=== PATIENT | male | born 1965 | race Two or more races ===

== ENCOUNTER 2018-11-05 15:47 | Inpatient (IN) | payer OTHER ==
[~2018-11-05] VITALS: Ht 185.4 cm; Wt 95.3 kg
--- NOTE | 2018-11-05 16:00 | NUR ---
patient BIBPA from snf, c/o generalized weakness, on room air, breathing evenly and unlabored. Connected to the monitor and pulse ox. kept comfortable. will continue to monitor accordingly.
[2018-11-05] MEDS ORDERED: POTA-88 PO (16:09)
[2018-11-05] MEDS ORDERED: ACET325C5 PO (16:09)
[2018-11-05] MEDS ORDERED: BISA10SU61 RC (16:09)
[2018-11-05] MEDS ORDERED: APIX5TAB4 PO (16:09)
[2018-11-05] MEDS ORDERED: MAGN400O6 PO (16:09)
[2018-11-05] MEDS ORDERED: HYDR-4384 PO (16:09)
[2018-11-05 16:22] LABS: BASOPHILS # (AUTO) 0.1 /CMM (0.0-0.2); BASOPHILS % (AUTO) 0.7 % (0.0-2.0); EOSINOPHILS % (AUTO) 1.7 % (0.0-6.0); HEMATOCRIT 49 % (39-51); HEMOGLOBIN 15.7 g/dL (13.5-17.5); LYMPHOCYTES # (AUTO) 2.1 /CMM (0.8-4.8); LYMPHOCYTES % (AUTO) 29.4 % (20.0-44.0); MEAN CORPUSCULAR HGB CONC 32 g/dl (31.0-36.0); MEAN CORPUSCULAR VOLUME 96 fL (80-96); MONOCYTES # (AUTO) 0.6 /CMM (0.1-1.30); NEUTROPHILS # (AUTO) 4.3 /CMM (1.8-8.9); NEUTROPHILS % (AUTO) 60.2 % (43.0-81.0); PLATELET COUNT (AUTO) 242 /CMM (150-450); RED BLOOD CELL COUNT(AUTO) 5.12 MIL/uL (4.5-6.0); WHITE BLOOD COUNT (AUTO) 7.1 K/uL (4.3-11.0)
[2018-11-05 16:32] LABS: CALCIUM, SERUM 8.9 mg/dL (8.5-10.1); CREATININE 1.1 mg/dL (0.6-1.3); POTASSIUM 4.4 mmol/L (3.5-5.1)
[2018-11-05 16:44] LABS: ALBUMIN 3.7 g/dL (3.4-5.0); BILIRUBIN,DIRECT 0.4 mg/dL (0.0-0.2); BILIRUBIN,TOTAL 1.8 mg/dL (0.2-1.0); TOTAL PROTEIN, SERUM 7.8 g/dL (6.4-8.2)
[2018-11-05] MEDS ORDERED: ASPIRIN 325 MG TABLET PO ONE (17:00)
[2018-11-05] MEDS ORDERED: SPIR25TA6 PO (17:10)
[2018-11-05] MEDS ORDERED: BUME2TAB7 PO (17:10)
[2018-11-05] MEDS ORDERED: MULT-134 PO (17:10)
[2018-11-05] MEDS ORDERED: LACT1CAP71 PO (17:10)
[2018-11-05] MEDS ORDERED: LISI-607 PO (17:10)
[2018-11-05] MEDS ORDERED: NA P133E RC (17:10)
[2018-11-05] MEDS ORDERED: COLC0.6C PO (17:10)
[2018-11-05] MEDS ORDERED: ASPI-605 PO (17:10)
[2018-11-05] MEDS ORDERED: ATOR80TA PO (17:10)
[2018-11-05] MEDS ORDERED: ALBU8.5H8 IH (17:10)
[2018-11-05] MEDS ORDERED: IVAB5TAB PO (17:10)
[2018-11-05] MEDS ORDERED: ALLO100T PO (17:10)
[2018-11-05] MEDS ORDERED: ASCO500T8 PO (17:10)
[2018-11-05] MEDS ORDERED: CHOL50004 PO (17:10)
[2018-11-05] MEDS ORDERED: ASPIRIN 325 MG TABLET ONE (17:12)
--- NOTE | 2018-11-05 18:08 | NUR ---
CALLED [facility]. BOILER FITTER WAS PAGED
[2018-11-05 19:00] VITALS: BP 106/70
--- NOTE | 2018-11-05 19:00 | NUR ---
DERRICK ENGINEER OPENING/ADMISSION NOTES RECEIVED PATIENT FROM ER TRANSFERRED TO BED SAFELY, AWAKE ALERT AND ORIENTED X 4, RESPIRATIONS EVEN AND UNLABORED WITH EQUAL RISE AND FALL , HOWEVER NOTED SLIGHT SOB ON EXERTION PLACE ON 2 L VIA NC FOR COMFORT AND PATIENT REQUEST , DENIES ANY PAIN OR DISCOMFORT AT THIS TIME, RADIOLOGIC TECHNOLOGY TEACHER PLACED [address], PER PATIENT STATES NORMAL IS BETWEEN 100 HIGHEST 115-120. USUALLY TACHYCARDIC, ORIENTED TO STAFF AND CALL LIGHT AND KEPT WITHIN REACH, IV SITE TO LEFT HAND #20G INTACT AND PATENT, NO REDNESS, NO INFILTRATION PRESENT, URINAL PROVIDED ASSISTED TO THE BATHROOM AMBULATORY STEADY WITH STANDBY ASSIST, PER PATIENT DOES NOT HAVE WOUNDS ONLY ON LEFT FOOT , PICTURE TAKEN,BELONGINGS LIST DONE, PATIENT REMAINS COMFORTABLE AT THIS TIME , WILL FOLLOW MD ORDERS AND CONTINUE TO ADDRESS NEEDS.
--- NOTE | 2018-11-05 19:05 | NUR ---
Transferred patient via gurney accompanied by RN and emt in no apparent distress noted. Paola RN at bedside to assume care.
[2018-11-05] MEDS ORDERED: HYDROCODONE/APAP 5/325MG 1 EACH TABLET PO PRN (19:30)
[2018-11-05] MEDS ORDERED: ACETAMINOPHEN 325 MG TABLET PO PRN (19:30)
[2018-11-05] MEDS ORDERED: MAGNESIUM HYDROXIDE 30 ML UDC PO PRN (19:30)
[2018-11-05] MEDS ORDERED: ONDANSETRON HCL/PF 4 MG/2 ML VIAL IVP PRN (19:30)
[2018-11-05] MEDS ORDERED: FUROSEMIDE 20 MG/2 ML VIAL IV ONE (19:30)
[2018-11-05] MEDS ORDERED: NA PHOS,M-B/NA PHOS,DI-BA 1 EA ENEMA RC PRN (19:30)
[2018-11-05] MEDS ORDERED: BISACODYL SUPP (10 MG) 10 MG/SUPP.RECT SUPP.RECT RC PRN (19:30)
[2018-11-05] MEDS ORDERED: Z GUARD REMEDY 2 OZ OINT TP PRN (19:30)
[2018-11-05 20:00] VITALS: BP 102/70
[2018-11-05] MEDS: MAG HYDROX/AL HYDROX/SIMETH 30 ML UDC PO PRN (20:06)
--- NOTE | 2018-11-05 20:06 | NUR ---
BURR BENCH HAND NOTES PATIENT C/O UPSET STOMACH REQUESTING FOR INDIGESTION MEDICATION, MYLANTA OFFERED PATIENT AGREED , PRN GIVEN ORDERED WILL CONTINUE TO MONITOR FOR EFFECTIVENESS
[2018-11-05] MEDS: APIXABAN 5 MG TABLET PO SCH (20:13)
[2018-11-05] MEDS: PANTOPRAZOLE 40 MG TABLET.DR PO SCH (20:14)
[2018-11-05] MEDS: POTASSIUM CHLORIDE 10 MEQ TABLET.SA PO SCH (20:14)
--- NOTE | 2018-11-05 21:29 | NUR ---
INITIAL FINDINGS OF ECHOCARDIOGRAM SHOWED EF 20%~ W/ ALL HEART CHAMBERS ENLARGED; MOD PUL HTN 50mmHg. ADVISED CHARGE AND ATTENDING RN OF PRELIMINARY RESULTS.
[2018-11-05] MEDS: ATORVASTATIN 40 MG TABLET PO SCH (21:34)
[2018-11-05] MEDS: BUMETANIDE (1 MG) 1 MG TABLET PO SCH (21:35)
--- NOTE | 2018-11-05 22:02 | NUR ---
ECONOMICS DEPARTMENT CHAIR NOTES MADE DR. CHANDRIKA VALENTIN OF ECHO RESULTS , NO FURTHER ORDER AT THIS TIME. PATIENT TO HAVE CARDIO CONSULT IN AM.
[2018-11-06] VITALS: BP 108/72
[2018-11-06] MEDS ORDERED: ALBUTEROL FS 2.5 MG/0.5 ML VIAL.NEB NEB PRN (01:30)
[2018-11-06 04:00] VITALS: BP 118/85
--- NOTE | 2018-11-06 06:34 | NUR ---
AUTOMOBILE RENTAL CLERK CLOSING NOTES PATIENT AWAKE ALERT AND ORIENTED X 4, RESPIRATIONS EVEN AND UNLABORED WITH EQUAL RISE AND FALL , NO SOB AT THIS TIME, PRN O2 2L VIA NC FOR COMFORT WHEN PATIENT REQUEST ON EXERTION , DENIES ANY PAIN OR DISCOMFORT AT THIS TIME, WINE AND SPIRITS CLERK SR 97, CALL LIGHT AND KEPT WITHIN REACH, IV SITE TO LEFT HAND #20G INTACT AND PATENT, NO REDNESS, NO INFILTRATION PRESENT, URINAL PROVIDED ASSISTED TO THE BATHROOM AMBULATORY STEADY WITH STANDBY ASSIST, DRY DRESSING REMAINS INTACT ON LEFT FOOT , PATIENT REMAINS COMFORTABLE AT THIS TIME , 2230 TR[address] REPORTED TO WITH N.N.O DURING SHIFT AND EKG RESULTS REPORTED NO FURTHER ORDERS AT THIS TIME, PATIENT PLAN OF CARE INCLUDES CARDIAC CONSULT THIS AM PER MD PLAN, ALL NEEDS ATTENDED AT THIS TIME, WILL CONTINUE TO MONITOR AND ENDORSE TO NEXT SHIFT.
[2018-11-06 07:21] LABS: BASOPHILS % (AUTO) 0.5 % (0.0-2.0); EOSINOPHILS % (AUTO) 2.9 % (0.0-6.0); HEMATOCRIT 44 % (39-51); LYMPHOCYTES # (AUTO) 2.2 /CMM (0.8-4.8); LYMPHOCYTES % (AUTO) 32.4 % (20.0-44.0); MEAN CORPUSCULAR HGB CONC 34 g/dl (31.0-36.0); MEAN CORPUSCULAR VOLUME 98 fL (80-96); MONOCYTES # (AUTO) 0.5 /CMM (0.1-1.30); MONOCYTES % (AUTO) 7.7 % (2.0-12.0); NEUTROPHILS # (AUTO) 3.9 /CMM (1.8-8.9); NEUTROPHILS % (AUTO) 56.5 % (43.0-81.0); PLATELET COUNT (AUTO) 235 /CMM (150-450); RED BLOOD CELL COUNT(AUTO) 4.52 MIL/uL (4.5-6.0); WHITE BLOOD COUNT (AUTO) 6.9 K/uL (4.3-11.0)
--- NOTE | 2018-11-06 07:30 | NUR ---
Tele/RN - Assessment Patient in bed awake, A/O X 4, denies chest pain at this time, no complaints overnight, states breathing better, stable on room air, no apparent distress seen, tele shows SR-ST. Saline lock on the left hand is patent, intact, flushing well. Labs reviewed noted with low magnesium 1.7, will notify Md. Fall precautions maintained. Patient updated on plan of care and in agreement. Will continue with current medical management.
[2018-11-06 07:32] LABS: CALCIUM, SERUM 8.9 mg/dL (8.5-10.1); CREATININE 1.1 mg/dL (0.6-1.3); POTASSIUM 3.5 mmol/L (3.5-5.1)
[2018-11-06 07:38] LABS: ALBUMIN 3.6 g/dL (3.4-5.0); BILIRUBIN,DIRECT 0.2 mg/dL (0.0-0.2); BILIRUBIN,TOTAL 2.4 mg/dL (0.2-1.0); MAGNESIUM 1.7 mg/dL (1.8-2.4); PHOSPHORUS 3.9 mg/dL (2.5-4.9); TOTAL PROTEIN, SERUM 7.7 g/dL (6.4-8.2)
[2018-11-06] MEDS: PANTOPRAZOLE 40 MG TABLET.DR PO SCH (07:45)
[2018-11-06 08:10] VITALS: BP 114/76
[2018-11-06] MEDS: POTASSIUM CHLORIDE 10 MEQ TABLET.SA PO SCH ×2 (08:28→16:32)
[2018-11-06] MEDS: MULTIVIT W/MINERALS 1 TAB TABLET PO SCH (08:28)
[2018-11-06] MEDS: ASCORBIC ACID 500 MG TABLET PO SCH (08:28)
[2018-11-06] MEDS: APIXABAN 5 MG TABLET PO SCH ×2 (08:28→16:32)
[2018-11-06] MEDS: LISINOPRIL (5MG) 5 MG TABLET PO SCH (08:29)
[2018-11-06] MEDS: COLCHICINE 0.6 MG TABLET PO SCH (08:29)
[2018-11-06] MEDS: ASPIRIN EC 81 MG TABLET.DR PO SCH (08:30)
[2018-11-06] MEDS: ACIDOPHILUS/BULGARICUS 1 EACH TAB.CHEW PO SCH (08:30)
--- NOTE | 2018-11-06 08:30 | NUR ---
Tele/RN - s/b Dr. Bush Seen and examined by Dr. Bush with new orders, noted and carried out.
[2018-11-06] MEDS: BUMETANIDE (1 MG) 1 MG TABLET PO SCH (08:34)
[2018-11-06] MEDS: CHOLECALCIFEROL 1,000 UNIT TABLET (VIT D3) PO SCH (08:35)
[2018-11-06] MEDS: SPIRONOLACTONE 25 MG TABLET PO SCH (08:35)
[2018-11-06] MEDS: ALLOPURINOL 100 MG TABLET PO SCH (08:35)
[2018-11-06] MEDS: MAG HYDROX/AL HYDROX/SIMETH 30 ML UDC PO PRN (08:36)
[2018-11-06] MEDS ORDERED: POTASSIUM CHLORIDE 20 MEQ TAB.PRT.SR PO SCH (09:00)
[2018-11-06] MEDS ORDERED: IVABRADINE HCL PO SCH (09:00)
[2018-11-06] MEDS: FUROSEMIDE 40 MG/4 ML VIAL IV SCH ×3 (09:13→16:32)
[2018-11-06 09:42] LABS: THYROID STIMULATING HORMONE 4.195 uIU/mL (0.358-3.74)
--- NOTE | 2018-11-06 10:30 | NUR ---
MS/RN - Hospitalist Jeanie Seen and examined by Alex Rodas NP with new orders.
[2018-11-06] MEDS: Magnesium 1GM/D5W 100ML PREMIX 100 ML IV SCH ×2 (11:36→12:37)
--- NOTE | 2018-11-06 12:30 | NUR ---
MS/RN - Notes US abdomen done, cardiac diet resumed.
--- NOTE | 2018-11-06 15:30 | NUR ---
MS/RN - ICD check ICD check done, normal function, see report in the chart.
[2018-11-06 16:00] VITALS: BP 105/74
--- NOTE | 2018-11-06 17:10 | NUR ---
MS/RN - End of shift summary Patient states feeling better, denies chest pain, stable on room air, Lasix 40 mg IVP x 3 doses given, diuresing well, magnesium replacement administered. No fall/injury this shift. Will endorse to night nurse accordingly.
--- NOTE | 2018-11-06 19:05 | NUR ---
MS RN NOTE RECEIVED PT IN STABLE CONDITION A&O X4, CURRENTLY IN BED WATCHING TV. NO SIGNS OF SOB OR DISTRESS. IV IN L HAND IN PLACE S/L. ALL CURRENT NEEDS ATTENDED TO. BED LOW, LOCKED, UPPER RAILS UP, AND CALL LIGHT WITHIN REACH. WILL CONT. TO MONITOR.
[2018-11-06 20:00] VITALS: BP 107/65
--- NOTE | 2018-11-06 20:30 | NUR ---
MS RN NOTE PT SEEN AND EXAMINED BY ROBB VOGEL.
[2018-11-06] MEDS: ATORVASTATIN 40 MG TABLET PO SCH (21:06)
[2018-11-07 00:23] VITALS: BP 112/75
--- NOTE | 2018-11-07 06:14 | NUR ---
MS RN NOTE PT IN STABLE CONDITION A&O X4, CURRENTLY IN BED WATCHING VIDEOS OF PHONE. NO SIGNS OF SOB OR DISTRESS. IV IN L HAND IN PLACE S/L. ALL CURRENT NEEDS ATTENDED TO. BED LOW, LOCKED, UPPER RAILS UP, AND CALL LIGHT WITHIN REACH. WILL CONT. TO MONITOR AND ENDORSE TO NEXT SHIFT FOR MINESH.
[2018-11-07 06:41] LABS: BASOPHILS % (AUTO) 0.6 % (0.0-2.0); HEMATOCRIT 49 % (39-51); HEMOGLOBIN 16.4 g/dL (13.5-17.5); LYMPHOCYTES # (AUTO) 2.6 /CMM (0.8-4.8); LYMPHOCYTES % (AUTO) 37.7 % (20.0-44.0); MEAN CORPUSCULAR HGB CONC 34 g/dl (31.0-36.0); MEAN CORPUSCULAR VOLUME 99 fL (80-96); MONOCYTES # (AUTO) 0.6 /CMM (0.1-1.30); MONOCYTES % (AUTO) 8.4 % (2.0-12.0); NEUTROPHILS # (AUTO) 3.4 /CMM (1.8-8.9); NEUTROPHILS % (AUTO) 49.3 % (43.0-81.0); PLATELET COUNT (AUTO) 222 /CMM (150-450); RED BLOOD CELL COUNT(AUTO) 4.96 MIL/uL (4.5-6.0); WHITE BLOOD COUNT (AUTO) 6.9 K/uL (4.3-11.0)
[2018-11-07 06:56] LABS: ALBUMIN 3.7 g/dL (3.4-5.0); BILIRUBIN,TOTAL 2.3 mg/dL (0.2-1.0); CALCIUM, SERUM 9.1 mg/dL (8.5-10.1); CREATININE 1.1 mg/dL (0.6-1.3); PHOSPHORUS 4.8 mg/dL (2.5-4.9); POTASSIUM 3.8 mmol/L (3.5-5.1); TOTAL PROTEIN, SERUM 7.9 g/dL (6.4-8.2)
[2018-11-07] MEDS: PANTOPRAZOLE 40 MG TABLET.DR PO SCH (07:19)
--- NOTE | 2018-11-07 07:20 | NUR ---
MS/RN - Assessment Patient in bed watching TV, A/O X 4, denies chest pain, no c/o shortness of breath, states breathing better, stable on room air. Saline lock on the left hand is patent, intact, flushing well. Labs reviewed, no critical results, magnesium level improved. Fall precautions maintained. Patient updated on plan of care and in agreement. Will continue with current medical management.
--- NOTE | 2018-11-07 07:40 | NUR ---
MS/RN - S/b Dr. Bush Seen and examined by Dr. Bush with no new orders at this time. Continue to diurese, cleared from cardiac standpoint for discharge.
[2018-11-07 08:00] VITALS: BP 104/72
[2018-11-07] MEDS: ASCORBIC ACID 500 MG TABLET PO SCH (08:10)
[2018-11-07] MEDS: BUMETANIDE (1 MG) 1 MG TABLET PO SCH (08:10)
[2018-11-07] MEDS: MULTIVIT W/MINERALS 1 TAB TABLET PO SCH (08:12)
[2018-11-07] MEDS: CHOLECALCIFEROL 1,000 UNIT TABLET (VIT D3) PO SCH (08:12)
[2018-11-07] MEDS: ALLOPURINOL 100 MG TABLET PO SCH (08:12)
[2018-11-07] MEDS: SPIRONOLACTONE 25 MG TABLET PO SCH (08:12)
[2018-11-07] MEDS: POTASSIUM CHLORIDE 10 MEQ TABLET.SA PO SCH (08:12)
[2018-11-07] MEDS: COLCHICINE 0.6 MG TABLET PO SCH (08:13)
[2018-11-07] MEDS: ASPIRIN EC 81 MG TABLET.DR PO SCH (08:13)
[2018-11-07] MEDS: ACIDOPHILUS/BULGARICUS 1 EACH TAB.CHEW PO SCH (08:13)
[2018-11-07] MEDS: APIXABAN 5 MG TABLET PO SCH (08:17)
[2018-11-07 08:56] VITALS: BP 104/72
[2018-11-07] MEDS: LISINOPRIL (5MG) 5 MG TABLET PO SCH (08:56)
--- NOTE | 2018-11-07 10:30 | NUR ---
MS/RN - Hospitalist Jeanie Seen and examined by Alex Rodas NP with order to discharge patient back to [facility] today.
--- NOTE | 2018-11-07 13:00 | NUR ---
MS/RN - Notes Patient denies chest pain, no apparent distress, no c/o SOB, remain afebrile. nurse manager arranged for non-emergency transportation, ETA 15:30. Patient was notified.
--- NOTE | 2018-11-07 14:00 | NUR ---
MS/RN - Notes Called report to JOHN Rivas at [facility] [phone]. Reviewed discharge instructions to have the patient follow up with PCP and roofing foreman, continue to diurese, ambulate, restrict fluid intake, strict I&O monitoring. RN verbalized full understanding and all questions answered to her satisfaction.
--- NOTE | 2018-11-07 16:00 | NUR ---
MS/RN - Discharge Note Patient alert and oriented throughout the shift, discharged home in stable condition, remain afebrile, no c/o shortness of breath, breathing improved, stable on room air, denies any pain. Reviewed discharge instructions with patient and he verbalized full understanding of all teachings including medications and follow-up care with PCP, [facility], continue home meds, restrict fluid intake, and ambulate. Patient advised to seek immediate medical attention for worsening symptoms, chest pain, shortness of breath, palpitations, abdominal pain/distention, intractable nausea and vomiting, diarrhea, hematochezia, melena, weakness, loss of consciousness, neurological deficit, or any other emergent concerns. All belongings with patient and he deny any missing items. Patient refused photos to be taken of left 4th toe wound, no s/s of infection. Saline lock removed on the left hand with catheter tip intact, no redness, no swelling noted at the site. Discharge paperwork signed and copies were given per protocol. Accompanied to the lobby via wheelchair and transported via non emergency transportation provided by his insurance. Addendum: 11/07/18 at 1627 by MATY BROWN RN Correction: Patient was discharged to [facility] and not home as documented above.
== END 2018-11-07 16:00 | DRG 194 ==
LOC: ER 16:01 → TELE 18:06 → MED 11-06 09:32
PROVIDERS: ADMIT Nurse Practitioner Acute Care; ATTEND Nurse Practitioner Acute Care
DX: I11.0 Hypertensive heart disease with heart failure (principal); I21.A1 Myocardial infarction type 2; I42.9 Cardiomyopathy, unspecified; K76.1 Chronic passive congestion of liver; Z79.01 Long term (current) use of anticoagulants; E11.9 Type 2 diabetes mellitus without complications; I50.23 Acute on chronic systolic (congestive) heart failure; E78.5 Hyperlipidemia, unspecified; M10.9 Gout, unspecified; K21.9 Gastro-esophageal reflux disease without esophagitis; Z79.82 Long term (current) use of aspirin; Z82.3 Family history of stroke; Z95.810 Presence of automatic (implantable) cardiac defibrillator; Z86.718 Personal history of other venous thrombosis and embolism; Z82.49 Family history of ischemic heart disease and other diseases of the circulatory system; Z79.899 Other long term (current) drug therapy
CPT/HCPCS: 36415; 71045-TC; 76700-TC; 80048-TC; 80053-TC; 80061-TC; 80076-TC; 83735-TC; 83880; 84100-TC; 84443-TC; 84484-TC; 85025-TC; 87081-TC; 93307-TC; 97116-TC; 97530-TC; G0378; J1940; J3475

== ENCOUNTER 2019-07-11 21:16 | Emergency (ER) | payer OTHER ==
[~2019-07-11] VITALS: Ht 185.4 cm; Wt 100.7 kg
[~2019-07-11 21:16] MED LIST: ACET325C7 PO; ALBU8.5H8 IH; ALLO100T PO; APIX5TAB4 PO; ASCO-492 PO; ASPI-605 PO; ATOR80TA PO; BISA10SU61 RC; BUME2TAB7 PO; CHOL50004 PO; COLC0.6C PO; HYDR-4384 PO; IVAB5TAB PO; LACT1CAP71 PO; LISI-607 PO; MAGN400O6 PO; MULT-134 PO; NA P133E RC; POTA-88 PO; SPIR25TA6 PO
--- NOTE | 2019-07-11 21:20 | NUR ---
PT CAREN FROM [facility] D/T SYNCOPAL EPISODES FOR FIVE SECONDS WHILE PATIENT WAS ON HIS WHEEL CHAIR. ACCDG TO THE PT, HE FELL AND HIT HIS HEAD. NO MEDICAL COMPLAINTS AT THIS TIME. L EYE SWELLING NOTED. PT CONNECTED TO THE MONITOR AND POX.
--- NOTE | 2019-07-11 21:36 | NUR ---
BLOOD COLLECTED AND SENT TO LAB
[2019-07-11 21:42] LABS: BASOPHILS # (AUTO) 0.1 /CMM (0.0-0.2); BASOPHILS % (AUTO) 1.2 % (0.0-2.0); EOSINOPHILS % (AUTO) 2.2 % (0.0-6.0); HEMATOCRIT 50 % (39-51); HEMOGLOBIN 15.9 g/dL (13.5-17.5); LYMPHOCYTES # (AUTO) 1.7 /CMM (0.8-4.8); LYMPHOCYTES % (AUTO) 22.5 % (20.0-44.0); MEAN CORPUSCULAR HGB CONC 32 g/dl (31.0-36.0); MEAN CORPUSCULAR VOLUME 95 fL (80-96); MONOCYTES # (AUTO) 0.6 /CMM (0.1-1.30); MONOCYTES % (AUTO) 8.1 % (2.0-12.0); PLATELET COUNT (AUTO) 243 /CMM (150-450); RED BLOOD CELL COUNT(AUTO) 5.25 MIL/uL (4.5-6.0); WHITE BLOOD COUNT (AUTO) 7.6 K/uL (4.3-11.0)
[2019-07-11 21:54] LABS: CALCIUM, SERUM 8.6 mg/dL (8.5-10.1); CREATININE 1.7 mg/dL (0.6-1.3); POTASSIUM 4.6 mmol/L (3.5-5.1)
[2019-07-11 21:58] LABS: ALBUMIN 3.7 g/dL (3.4-5.0); BILIRUBIN,DIRECT 0.6 mg/dL (0.0-0.2); BILIRUBIN,TOTAL 1.4 mg/dL (0.2-1.0); TOTAL PROTEIN, SERUM 7.8 g/dL (6.4-8.2)
--- NOTE | 2019-07-12 00:18 | NUR ---
JOHN LAURA FROM [facility] MADE AWARE OF PT'S HR 120-130
--- NOTE | 2019-07-12 00:33 | NUR ---
Patient does not wish to proceed with medical care recommended by Dr Schaeffer. Patient given information related to possible complications, up to and including , which could occur as a result of leaving the hospital at this time. Patient verbalizes understanding of risks involved due to leaving against medical advice. Patient has signed AMA form.
--- NOTE | 2019-07-12 00:33 | NUR ---
[facility] ETA 1 HR.
[2019-07-12 02:39] VITALS: BP 131/72
--- NOTE | 2019-07-12 02:39 | NUR ---
REPORT GIVEN TO EMS. PT TRANSFERRED TO [facility] IN STABLE CONDITINO
== END 2019-07-12 02:40 | disposition left against medical advice (07) ==
LOC: ER 21:16
DX: S09.8XXA Other specified injuries of head, initial encounter (principal); R55 Syncope and collapse; I11.0 Hypertensive heart disease with heart failure; I50.9 Heart failure, unspecified; E78.5 Hyperlipidemia, unspecified; E11.9 Type 2 diabetes mellitus without complications; M10.9 Gout, unspecified; Z79.899 Other long term (current) drug therapy; Z79.82 Long term (current) use of aspirin; W07.XXXA Fall from chair, initial encounter; Y93.89 Activity, other specified; Y92.89 Other specified places as the place of occurrence of the external cause; Y99.8 Other external cause status
CPT/HCPCS: 36415; 70450-TC; 71045-TC; 80048-TC; 80076-TC; 84484-TC; 85025-TC; 85730-TC